=== PATIENT | female | born 1970 | race Caucasian/White ===

== ENCOUNTER 2016-07-26 12:52 | Outpatient (CLI) | payer BC ==
[2016-07-26] MEDS ORDERED: IOHEXOL 50 ML IV ONE (13:17)
== END 2016-07-26 13:30 | disposition home or self-care (01) ==
LOC: SRD 12:52
PROVIDERS: ATTEND Specialist
DX: N83.201 Unspecified ovarian cyst, right side (principal); N83.202 Unspecified ovarian cyst, left side; N92.6 Irregular menstruation, unspecified
CPT/HCPCS: 74740; C1751; Q9967

== ENCOUNTER 2020-01-26 10:51 | Day surgery (SDC) | payer BC, SELFPAY ==
[~2020-01-26] VITALS: Ht 167.6 cm; Wt 76.2 kg
[2020-01-26] MEDS ORDERED: OXYTOCIN 10 UNIT/ML VIAL IV ONE (12:40)
[2020-01-26] MEDS ORDERED: fentaNYL CITRATE 250 MCG/5 ML AMP IV ONE (12:40)
[2020-01-26] MEDS ORDERED: ONDANSETRON HCL 4 MG/2 ML VIAL IVP ONE (12:40)
[2020-01-26] MEDS ORDERED: PROPOFOL 200MG/ 20ML VIAL (DIPRIVAN) IV ONE (12:40)
[2020-01-26] MEDS ORDERED: DESFLURANE 15 MIN GAS INH ONE (12:40)
[2020-01-26] MEDS ORDERED: LR 1,000 ML IV.SOLN IV ONE (12:40)
[2020-01-26] MEDS ORDERED: NS IRRIG SOLN 1000 ML IR ONE (12:40)
[2020-01-26] MEDS ORDERED: DEXAMETHASONE SOD PHOSPHATE 4 MG/ML VIAL IVP ONE (12:40)
[2020-01-26] MEDS ORDERED: KETOROLAC TROMETHAMINE 30 MG VIAL IVP ONE (12:40)
[2020-01-26] MEDS ORDERED: CEFAZOLIN 1 GM IVPB PREMIX 50 ML IV ONE (12:40)
[2020-01-26] MEDS ORDERED: HYDROmorphone 1 MG INJ. 1 MG/ML AMPUL IVP PRN ×2 (13:15)
[2020-01-26] MEDS ORDERED: OXYCODONE/ACETAMINOPHEN 5-325 TABLET PO PRN ×2 (13:15)
[2020-01-26] MEDS ORDERED: HYDROcodone/ACETAMIN 5-325 MG TAB (NORCO/ VICODIN) PO PRN (13:15)
[2020-01-26] MEDS ORDERED: ONDANSETRON HCL 4 MG/2 ML VIAL IVP PRN ×2 (13:15)
[2020-01-26 14:20] VITALS: BP_SYST 102
== END 2020-01-26 15:40 | disposition home or self-care (01) ==
LOC: SMU 10:51 → SDS 10:51
PROVIDERS: ATTEND Specialist
DX: O03.4 Incomplete spontaneous abortion without complication (principal); F32.9 Major depressive disorder, single episode, unspecified; Z79.899 Other long term (current) drug therapy; Z20.828 Contact with and (suspected) exposure to other viral communicable diseases
CPT/HCPCS: 36415; 59812; 86886; 86900; 86901; 88305; J0690; J1100; J1885; J2405; J2590; J2704; J3010; J7120; U0003